=== PATIENT | female | born 1945 | race Caucasian/White ===

== ENCOUNTER 2022-02-06 08:13 | Day surgery (SDC) | payer MEDICARE, BC ==
[2022-02-04 16:17] LABS: BASOPHILS # (AUTO) 0.1 X10'3 (0-0.2); BASOPHILS % (AUTO) 1.6 % (0-1); EOSINOPHILS # (AUTO) 0.1 X10'3 (0-0.9); LYMPHOCYTES # (AUTO) 1.3 X10'3 (1.1-4.8); LYMPHOCYTES % (AUTO) 22.4 % (21-51); MEAN CORPUSCULAR HEMOGLOBIN 28.2 PG (27.0-31.0); MEAN CORPUSCULAR HGB CONC 32.5 g/dL (33.0-36.5); MEAN PLATELET VOLUME 9.1 FL (7.4-10.4); MONOCYTES # (AUTO) 0.6 X10'3 (0-0.9); MONOCYTES % (AUTO) 10.2 % (2-12); NEUTROPHILS # (AUTO) 3.7 X10'3 (1.8-7.7); NEUTROPHILS % (AUTO) 63.8 % (42-75); PRE OP HEMATOCRIT 38.3 % (35.0-45.0); PRE OP HEMOGLOBIN 12.4 g/dL (12.0-16.0); PRE OP PLATELET COUNT 314 X10'3 (140-440); RED CELL DISTRIBUTION WIDTH 17.3 % (11.5-14.5)
[2022-02-04 16:18] LABS: ALBUMIN 3.6 G/DL (3.4-5.0); ALKALINE PHOSPHATASE 82 IU/L (46-116); BLOOD UREA NITROGEN 15 MG/DL (7-18); BUN/CREATININE RATIO 20.8 (6.6-38.0); CALCIUM 8.7 MG/DL (8.5-10.1); CHLORIDE 106 MMOL/L (99-107); CREATININE 0.72 MG/DL (0.40-0.90); PRE OP ALT 29 U/L (30-65); PRE OP ANION GAP 8 (8-16); PRE OP AST 25 U/L (10-37); PRE OP BILIRUB, TOTAL 0.5 MG/DL (0.0-1.0); PRE OP GLUCOSE 99 MG/DL (70-104); PRE OP POTASSIUM 3.6 MMOL/L (3.4-5.1); PRE OP SODIUM 139 MMOL/L (135-145); TOTAL CARBON DIOXIDE 24.8 MMOL/L (24-32); TOTAL PROTEIN 7.2 G/DL (6.4-8.2); eGFR 79 ML/MIN
[~2022-02-06] VITALS: Ht 165.1 cm; Wt 81.8 kg
[2022-02-06] VITALS (11 sets, daily range): BP systolic 121–144; BP diastolic 67–83
[~2022-02-06 08:13] MED LIST: ASCO100T12 PO; ATOR10TA87 PO; OSC500T PO; VITA-268 PO; ceFAZolin inj. 2,000 MG in dextrose 5%-water 100 ML IV ONE; ceFOXitin 2GM-NS 100mL ADDvant 100 ML IV ONE; famotidine 20mg tablet PO ONE; ringers solution, lacted 1,000 ML IV SCH
[2022-02-06] MEDS ORDERED: clindamycin phosphate 40gm vag cream ONE (10:30)
[2022-02-06] MEDS ORDERED: ceFAZolin 1000mg inj ONE (10:30)
[2022-02-06] MEDS ORDERED: LIDOcaine 1% 30ml preserv. free vial ONE (10:31)
[2022-02-06] MEDS ORDERED: LIDOcaine 1% W/epiNEPHrine 1:100,000 20ml vial ONE (10:32)
[2022-02-06] MEDS ORDERED: sevoflurane 250ml liquid IH ONE (10:47)
[2022-02-06] MEDS ORDERED: FENTANYL CITRATE/PF 50 MCG/1 ML VIAL ONE (10:50)
[2022-02-06] MEDS ORDERED: midazolam 1 mg/ML 2ml injection ONE (10:50)
[2022-02-06] MEDS ORDERED: propofol inj 20 ML IV ONE (10:54)
[2022-02-06] MEDS ORDERED: meperidine/PF 25mg/ml syringe IV PRN ×3 (11:20)
[2022-02-06] MEDS ORDERED: morphine 4 MG/ML inj SYRINge IV PRN (11:20)
[2022-02-06] MEDS ORDERED: morphine 2 MG/ML inj. syringe IV PRN (11:20)
[2022-02-06] MEDS ORDERED: ringers solution, lacted 1,000 ML IV SCH (11:20)
[2022-02-06] MEDS ORDERED: proCHLORperazine 10 MG/2 ml inj IV PRN (11:20)
[2022-02-06] MEDS ORDERED: ondansetron/PF 4mg/2ml inj IV PRN (11:20)
--- NOTE | 2022-02-06 11:48 | NUR ---
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 PT DROWSY, DENIES PAIN. NO DRSG'S OR INCISIONS. Addendum: 02/06/22 at 1204 by Adelaida Barragan RN Amended: Links added.
[2022-02-06] MEDS ORDERED: HYDROcodone/acetaminophen 5mg/325mg tablet PO ONE (13:00)
--- NOTE | 2022-02-06 13:09 | NUR ---
PT UP AMBULATING SAFELY, UNABLE TO VOID. PT REQUESTING COFFEE, WILL GIVE HER A CUP OF COFFEE AND HAVE HER RE-ATTEMPT TO VOID. Addendum: 02/06/22 at 1310 by Adelaida Barragan RN Amended: Links added.
--- NOTE | 2022-02-06 14:08 | NUR ---
PT REMAINS COMFORTABLE, HAS MILD PAIN, NORCO 5/325 MG GIVEN FOR DISCOMFORT AND RIDE HOME. PT STATES SHE VOIDED A MODERATE AMOUNT OF URINE. D/C INSTRUCTIONS GIVEN AND GONE OVER W/PT WHO VERBALIZED UNDERSTANDING, PT HAS WRITTEN INSTRUCTIONS FROM DR OLGUIN AT HOME. PT D/CD TO HOME VIA W/C TO PRIVATE VEHICLE W/O INCIDENT. Addendum: 02/06/22 at 1419 by Adelaida Barragan RN Amended: Links added.
== END 2022-02-06 14:08 | disposition home or self-care (01) ==
LOC: PAS 08:13
PROVIDERS: ATTEND Obstetrics & Gynecology
DX: N39.3 Stress incontinence (female) (male) (principal); N81.6 Rectocele; M81.0 Age-related osteoporosis without current pathological fracture; Z87.891 Personal history of nicotine dependence; Z98.890 Other specified postprocedural states; Z79.899 Other long term (current) drug therapy; Z80.0 Family history of malignant neoplasm of digestive organs
CPT/HCPCS: 36415; 57288; 80053; 82948; 85025; 86885; 86900; 86901; 93005; C1758; C1771; J0690; J0694; J2250; J2704; J3010; J3490; J7030; J7120; Z7506; Z7508; Z7512; A4355; A4618; A7000

== ENCOUNTER 2022-08-22 11:51 | Emergency (ER) | payer MEDICARE, BC ==
[~2022-08-22] VITALS: Ht 160 cm; Wt 79.5 kg
[~2022-08-22 11:51] MED LIST changes: -ceFAZolin inj. 2,000 MG in dextrose 5%-water 100 ML IV ONE; -ceFOXitin 2GM-NS 100mL ADDvant 100 ML IV ONE; -famotidine 20mg tablet PO ONE; -ringers solution, lacted 1,000 ML IV SCH
[2022-08-22 13:35] LABS: BASOPHILS # (AUTO) 0.1 X10'3 (0-0.2); BASOPHILS % (AUTO) 0.9 % (0-1); EOSINOPHILS % (AUTO) 0.3 % (0-6); HEMATOCRIT 40.9 % (35.0-45.0); HEMOGLOBIN 13.4 g/dl (12.0-16.0); LYMPHOCYTES # (AUTO) 0.9 X10'3 (1.1-4.8); LYMPHOCYTES % (AUTO) 10.6 % (21-51); MEAN CORPUSCULAR HEMOGLOBIN 30.7 PG (27.0-31.0); MEAN CORPUSCULAR HGB CONC 32.9 g/dL (33.0-36.5); MEAN CORPUSCULAR VOLUME 93.2 FL (78-98); MEAN PLATELET VOLUME 8.3 FL (7.4-10.4); MONOCYTES % (AUTO) 10.7 % (2-12); NEUTROPHILS # (AUTO) 6.9 X10'3 (1.8-7.7); NEUTROPHILS % (AUTO) 77.5 % (42-75); PLATELET COUNT 213 X10'3 (140-440); RED BLOOD COUNT 4.38 X10'6 (4.20-5.60); RED CELL DISTRIBUTION WIDTH 14.9 % (11.5-14.5); WHITE BLOOD COUNT 8.9 X10'3 (4.5-11.0)
[2022-08-22 13:50] LABS: ALANINE AMINOTRANSFERASE 42 U/L (12-78); ALBUMIN 3.7 G/DL (3.4-5.0); ALBUMIN/GLOBULIN RATIO 0.9 (1.1-1.5); ALKALINE PHOSPHATASE 113 IU/L (46-116); ANION GAP 10 (8-16); ASPARTATE AMINO TRANSFERASE 32 U/L (10-37); BILIRUBIN,TOTAL 1.2 MG/DL (0.1-1.0); BLOOD UREA NITROGEN 11 MG/DL (7-18); BUN/CREATININE RATIO 13.9 (6.6-38.0); CALCIUM 8.7 MG/DL (8.5-10.1); CHLORIDE 100 MMOL/L (99-107); CREATININE 0.79 MG/DL (0.40-0.90); GLUCOSE 105 MG/DL (70-104); POTASSIUM 3.5 MMOL/L (3.5-5.1); SODIUM 134 MMOL/L (135-145); TOTAL CARBON DIOXIDE 24.5 MMOL/L (24-32); TOTAL PROTEIN 7.7 G/DL (6.4-8.2); eGFR 71 ML/MIN
[2022-08-22 13:58] LABS: D-DIMER 23.54 MG/L FEU (0-0.50)
[2022-08-22] MEDS ORDERED: normal saline 1000ML IV soln IVB ONE (15:10)
[2022-08-22 15:11] LABS: APTT 28 SECONDS (22-32)
[2022-08-22] MEDS ORDERED: iohexol 350MG/ML 100ml bottle IV ONE (15:12)
[2022-08-22] MEDS ORDERED: iohexol 350 MG/ML 50ML vial IV ONE (15:12)
[2022-08-22] MEDS ORDERED: morphine 2 MG/ML inj. syringe IV ONE ×2 (15:20→18:20)
[2022-08-22] MEDS ORDERED: ondansetron/PF 4mg/2ml inj IV ONE (15:20)
[2022-08-22 17:15] LABS: CLARITY,URINE CLEAR (Clear); COLOR,URINE STRAW (Yellow); GLUCOSE, URINE NEGATIVE (Neg); KETONES,URINE NEGATIVE (Neg); LEUKOCYTE ESTERASE ,URINE NEGATIVE (Neg); NITRITES, URINE NEGATIVE (Neg); OCCULT BLOOD,URINE TRACE-INTACT (Neg); PH,URINE 6.5 (4.8-8.0); PROTEIN,URINE NEGATIVE (Neg); UROBILINOGEN,URINE 0.2 E.U/dL (0.2-1.0)
[2022-08-22 17:21] LABS: UA COLLECTION TYPE CLN CATCH MIDSTREAM
[2022-08-22 17:22] LABS: BACTERIA,URINE NONE SEEN /HPF (Neg); MUCUS STRANDS FEW /LPF (Neg); RBC,URINE 0-2 /HPF (0-2); SQUAMOUS EPITHELIAL CELL,UR FEW /LPF (FEW); WBC,URINE 0-4 /HPF (0-4)
--- NOTE | 2022-08-22 18:20 | NUR ---
Pt's CT results available: DVT common femoral vein (L leg). RN notified provided Dr. Ohn. [place] is aware.
[2022-08-22 18:47] VITALS: BP 136/93
[2022-08-22] MEDS ORDERED: morphine 4 MG/ML inj SYRINge IV ONE (23:30)
[2022-08-26 19:07] LABS: PROTEIN S, FREE 77 % (61-136); PROTEIN S, TOTAL 131 % (60-150)
== END 2022-08-23 00:08 | disposition short-term general hospital (02) ==
LOC: ER 11:52
DX: I82.402 Acute embolism and thrombosis of unspecified deep veins of left lower extremity (principal); Z20.822 Contact with and (suspected) exposure to COVID-19
CPT/HCPCS: 36415; 71045; 75635; 80053; 81001; 83605; 84145; 85025; 85303; 85305; 85306; 85379; 85384; 85610; 85730; 87040; 87811; 93971; 96361; 96374; 96375; 96376; 99285; J2270; J2405; J3490; J7030; Q9967